=== PATIENT | male | born 1940 | race Caucasian/White ===

== ENCOUNTER 2020-06-10 06:10 | Observation (INO) | payer MEDICARE, SELFPAY ==
[2020-06-10] VITALS (12 sets, daily range): BP systolic 126–143; BP diastolic 50–87; PULSE 62–90; RESP 12–18; TEMP 36.4–37.4; O2SAT 96–100; BMI 24.6; BMI 24.2
--- NOTE | 2020-06-10 06:19 | ED.VIS.GEN ---
History of Present Illness Chief Complaint: Allergic Reaction Informant: Patient Onset: Yesterday Context: Gradual Onset Current Severity: Moderate Maximum Severity: Moderate Narrative: The patient is an 79-year-old male with medical history significant for hypertension the presents to the emergency department concern for allergic reaction. Patient states yesterday, he began to have some redness and itching on the palm of his left hand. He also noticed that on the lateral aspect of his left face. He states he has been using a diclofenac cream. He denies any other new exposures. He denies any trouble speaking or swallowing. He denies any fevers or chills. The patient is on an PALOMA inhibitor for high blood pressure and has been taking it for years. He has no history of angioedema. Prior similar symptoms: No Recent Illness/Hospitalization: No Past Medical History - Allergies and Home Meds Allergies/Adverse Reactions: Allergies Penicillins Allergy (Verified 06/10/20 06:18) Hives Primary Care Physician: Jose Rafael Kern MD [Primary Care Provider] - Prior records reviewed: Yes Past Medical History: - - Hypertension Surgical History: no surgical history Smoking Status: Never smoker - Family History Maternal Family History: Reports: - - He denies any chronic medical problems in the family. Review of Systems General: Denies: Chills, Fever, Sweats Eyes: Denies: Visual changes - bilaterally, Diplopia ENT: Denies: Rhinorrhea, Sore throat Cardiovascular: Denies: Chest pain, Palpitations Respiratory: Denies: Dyspnea, Cough, Dyspnea on exertion Gastrointestinal: Denies: Abdominal pain, Nausea, Vomiting, Diarrhea, Melena, Hematochezia Genitourinary: Denies: Dysuria, Hematuria, Frequency Musculoskeletal: Denies: Back pain, Extremity Pain Skin: Denies: Rash, Wounds Neurological: Denies: Headache, Weakness, Numbness Physical Exam Vital Signs/Narrative: Vital Signs Temp Pulse Resp BP Pulse Ox 06/10/20 06:15 135/59 H 06/10/20 06:12 98.6 F 77 16 100 Inital Vital Signs reviewed: Yes General: Well nourished, Well developed, No Acute Distress Head: Normocephalic, Atraumatic Eyes: Perrl, EOMI ENT: Moist mucous membranes, No rhinorrhea, - - Mild erythema and edema of the left lateral lower lip. Posterior oropharynx widely patent. No edema of the tongue. No trismus or stridor. Neck: Supple, Nontender Cardiovascular: Regular rate, Regular rhythm, No murmurs Respiratory: No distress, CTA bilaterally, Chest nontender Abdomen: Soft, Nontender, Nondistended, Normal bowel sounds Back: Nontender, Normal Inspection Extremities: Nontender, No edema Skin: Normal color, Rash - Erythema on the hand with some slight urticaria. Neurological: Alert, Oriented x3, Cranial nerves II-XII grossly intact, Normal Strength, Normal Sensation Psychological: Normal affect, Normal Mood Diagnostic/Tx/Re-eval - Medical Decision Making The patient presents with allergic reaction. There is some urticaria on the hand. However, he does have mild angioedema of the left lower lip. It does not involve the tongue or posterior oropharynx. This does seem to be consistent with contact as it does involve the hand, however the patient is also on lisinopril. The patient was treated with Benadryl, Pepcid, and Solu-Medrol. Screening labs were obtained were unremarkable. Again, this does seem more consistent with a contact allergic reaction, but with the component of slight angioedema I do feel the most prudent plan of care would be to have the patient hold his lisinopril. He is comfortable with this plan of care. I will keep him on a prednisone burst. He will be discharged home. Impression 1. Allergic reaction 2. Mild angioedema ED Disposition - Plan for ED Patient: Instructions: ED Angioedema Prescriptions: Prednisone [Deltasone] 40 mg PO DAILY #10 tab Prescription Printed Referrals: Jose Rafael Kern MD [Primary Care Provider] - Additional Instructions: Please do not take your lisinopril until you follow-up with Dr. Kern.
[2020-06-10] MEDS: DiphenhydrAMINE 50 MG/ML Syringe 25 MG IV (06:22)
[2020-06-10] MEDS: MethylPREDNISolone 125 MG/2 ML Vial IV (06:23)
[2020-06-10] MEDS: Famotidine 200 MG/20 ML MDV 20 MG in 0.9% Normal Saline (Pres. free 8 ML 300 MG IV ×2 (06:25→21:04)
[2020-06-10 06:33] LABS: Absolute Lymphocyte Count 1.84 X10^3/uL (0.83-4.51); Absolute Neutrophil Count 6.6 X10^3/uL (2.0-7.7); Eosinophil# 0.41 X10^3/uL; Eosinophils% 4.1 % (0-5); Hematocrit 33.3 % (40-54); Hemoglobin 10.7 g/dL (13.0-16.5); Lymphocyte # 1.84 X10^3/ul (4.0); Lymphocyte % 18.5 % (19-41); Mean Corp Hgb Conc 32.1 g/dL (32-36); Mean Corpuscular Hgb 29.7 pg (27.0-32.0); Mean Corpuscular Volume 92.5 fL (80-94); Mean Platelet Vol. 8.9 fl (6.2-12.0); Monocyte% 9.1 % (0-10); NRBC Flagged by Analyzer 0 % (0-5); Neutrophil # 6.63 X10^3/uL (2.7-7.7); Neutrophil % 66.8 % (47-70); Platelet Count 396 K/mm3 (150-450); RBC Distribution Width CV 13.1 % (11.6-14.6); RBC Distribution Width SD 44.2 fl (35.1-43.9); White Blood Count 9.9 K/mm3 (4.4-11.0)
[2020-06-10 06:56] LABS: Anion Gap 6 (5-15); BUN 25 mg/dL (7-18); BUN/Creat Ratio 22.3 RATIO (10-20); Calcium,Total 8.3 mg/dL (8.5-10.1); Chloride 103 mmol/L (98-107); Creatinine, Serum 1.12 mg/dL (0.70-1.30); EST Glomerular Filtration Rate 67 mL/min (>60); Est Glom Filt Rate - Afr Amer 81 mL/min (>60); Estimated Creatinine Clearance 51.73 ml/min; Glucose 101 mg/dL (74-106); Potassium 4.2 mmol/L (3.5-5.1); Sodium Level 137 mmol/L (136-145)
[2020-06-10] MEDS: LORazepam 2 MG/ML Syringe 0.5 MG IV (06:59)
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
--- NOTE | 2020-06-10 09:10 | PCM.HP.STD ---
History of Present Illness The patient is a 79 year old M [] Past Medical History Past Medical History (Chronic Problems): Chronic Problems Hypertension (Chronic) Allergies Penicillins Allergy (Verified 06/10/20 06:18) Hives Home Medications: Ambulatory Orders Medication Instructions Recorded Lisinopril [Zestril] 20 mg PO BID 08/27/16 Tamsulosin HCl [Flomax] 0.4 mg PO QHS 08/27/16 Amlodipine [Norvasc] 5 mg PO DAILY #30 tablet 08/31/16 Prednisone [Deltasone] 40 mg PO DAILY #10 tab 06/10/20 Surgical History: no surgical history Psychiatric History: No pertinent psych hx Smoking Status: Never smoker - *Family History Maternal History Items: - - He denies any chronic medical problems in the family. - Physical Exam Vitals/I&O's: Vital Signs Temp Pulse Resp BP Pulse Ox 98.6 F 69 18 132/87 H 99 06/10/20 06:12 06/10/20 08:11 06/10/20 08:11 06/10/20 08:11 06/10/20 08:11 Weight: 166 lb 14.239 oz Body Mass Index (BMI) 24.6 Intake and Output for Last 24 Hours 06/08/20 06/09/20 06/10/20 23:59 23:59 23:59 Intake Total Balance Laboratory Results 06/10/20 06:30: WBC 9.9, RBC 3.60 L, Hgb 10.7 L, Hct 33.3 L, MCV 92.5, MCH 29.7, MCHC 32.1, RDW Std Deviation 44.2 H, RDW Coeff of Jono 13.1, Plt Count 396, MPV 8.9, Immature Gran % (Auto) 0.500, Neut % (Auto) 66.8, Lymph % (Auto) 18.5 L, Ashley % (Auto) 9.1, Eos % (Auto) 4.1, Baso % (Auto) 1.0, Absolute Neuts (auto) 6.6, Absolute Lymphs (auto) 1.84, Nucleated RBC % 0 06/10/20 06:30: Sodium 137, Potassium 4.2, Chloride 103, Carbon Dioxide 28.0, Anion Gap 6, BUN 25 H, Creatinine 1.12, Estim Creat Clear Calc 51.73, Est GFR (MDRD) Af Amer 81, Est GFR (MDRD) Non-Af 67, BUN/Creatinine Ratio 22.3 H, Glucose 101, Calcium 8.3 L Assessment/Plan All Active Problems Cholecystitis (Acute) Gallstone pancreatitis (Acute)
[2020-06-10] MEDS: amLODIPine 5 MG Tablet PO (10:41)
[2020-06-10] MEDS: 0.9% Normal Saline 1,000 ML 100 ML IV (10:42)
[2020-06-10] MEDS: Enoxaparin 40 MG/0.4 ML Syringe SC (10:42)
[2020-06-10] MEDS: 0.9% Saline Lock 10 ML Syringe IV ×5 (10:50→23:53)
[2020-06-10] MEDS: DiphenhydrAMINE 50 MG/ML Syringe 12.5 MG IV ×3 (10:50→23:53)
[2020-06-10 11:00] LABS: Bedside Glucose 139 mg/dL (70-110)
--- NOTE | 2020-06-10 15:04 | CASEMGMT ---
Addendum entered by Rere Sanchez 06/10/20 15:25: This RN CM back to room. Pt inquiring about being inpt or OBS and this RN CM informed him that he is Obs at this time. Pt states that no one informed him of being observation but pt was provided with the MCR IP vs OBS booklet in the ED. Pt is not happy and asks this RN CM 'So you think I can just pay for this out of pocket.' Pt advised that he has a managed MCR which has MCR A/B and explained what A/B both cover at this time. Pt aware that he should not be paying for visit 'out of pocket' as his AnthMCR should cover but it's just paid differently than inpt. Pt still seems upset at this time but does not ask this RN CM any more questions. Danuta, PCU director, aware of all and states she will stop into to see pt. Pt is on room air at this time with slight swelling to upper lip. Pt is in no distress at this time. Lata KHAN CM Original Note: Per Luz, PCU charge, pt would like to speak with RN CM regarding OBS status at this time. This RN CM has attempt to see pt multiple times without success. Will attempt again later. Lata KHAN CM
[2020-06-10] MEDS: Tamsulosin HCl 0.4 MG Capsule PO (21:04)
[2020-06-11 03:00] VITALS: PULSE 61
[2020-06-11] MEDS: 0.9% Saline Lock 10 ML Syringe IV (05:49)
[2020-06-11] MEDS: DiphenhydrAMINE 50 MG/ML Syringe 12.5 MG IV (05:49)
[2020-06-11 05:52] VITALS: BP 123/53; PULSE 60; RESP 16; TEMP 37.5; O2SAT 97
[2020-06-11 07:00] VITALS: PULSE 66
[2020-06-11 07:22] LABS: AST(SGOT) 19 U/L (15-37); Alanine Aminotransfer ALT/SGPT 42 U/L (16-61); Albumin, Serum 2.7 g/dL (3.2-5.0); Alkaline Phosphatase 175 U/L (45-117); Bilirubin, Direct 0.13 mg/dL (0.00-0.30); Globulin 3.5 g/dL (2.2-4.2); Magnesium 2.2 mg/dL (1.6-2.6); Protein, Total 6.2 g/dL (6.4-8.2)
[2020-06-11 07:35] VITALS: O2SAT 93
[2020-06-11 09:30] VITALS: BP 119/53; PULSE 65; RESP 16; TEMP 36.8; O2SAT 95
[2020-06-11] MEDS: amLODIPine 5 MG Tablet PO (09:32)
[2020-06-11] MEDS: Enoxaparin 40 MG/0.4 ML Syringe SC (09:32)
[2020-06-11] MEDS: Famotidine 200 MG/20 ML MDV 20 MG in 0.9% Normal Saline (Pres. free 8 ML 300 MG IV (09:43)
--- NOTE | 2020-06-11 10:58 | DCINST_ITS ---
- Discharge Diagnoses Current Active Problems: Current Active and Chronic Problems Allergic reaction (Acute) Angioedema of upper lip (Acute) You will use the following diet at home:: Cardiac Your food should be the consistency of: Regular Discharge Activity: May Not Drive Weight Bearing Status: Weight bearing as tolerated Call your doctor if you observe: Fever of 101 or Higher, Numbness or Tingling, Change in Color, Inability to urinate, Inability to have a bowel movement, Shortness of breath, Dizziness, Fainting spells, Swelling in the ankles, Chest pain, Prolonged hiccoughing, Increased palpitations (irregular heartbeat), Calf discomfort, Uncontrolled pain Instructions: ED Angioedema Pending Tests on Discharge: Follow-up orthopedic surgeon, [facility] [address] on 06/13/2020 Allergies/Adverse Reactions: Allergies Penicillins Allergy (Intermediate, Verified 06/10/20 09:49) Hives Medications to take at Discharge Tamsulosin HCl [Flomax] 0.4 mg PO QHS 08/27/16 Amlodipine [Norvasc] 5 mg PO DAILY 06/10/20 Diphenhydramine HCl [Benadryl Allergy] 12.5 mg PO Q6H #30 tab 06/11/20 Famotidine [Pepcid] 20 mg PO BID #14 tab 06/11/20 Lisinopril [Zestril] 20 mg PO BID #0 06/11/20 Prednisone 10 mg PO DAILY #30 tab 06/11/20 The following prescriptions were given: Diphenhydramine HCl [Benadryl Allergy] 12.5 mg PO Q6H #30 tab Famotidine [Pepcid] 20 mg PO BID #14 tab Prednisone 10 mg PO DAILY #30 tab Primary Care Physician: Jose Rafael Kern MD [Primary Care Provider] - Please follow up with your Primary Care Physician in: IN 2 WEEKS Test Results: Test results from this visit will be discussed in further detail at your follow- up appointment, if applicable.
--- NOTE | 2020-06-11 11:46 | CASEMGMT ---
This ERIN CM to room with YEE form at this time, explanation done-pt voices understanding, and signed YEE form at this time. Pt states that he did call his insurance company this am to go over coverage for outpt. Original to chart and copy to pt at this time. Pt voices no further questions/concerns/needs at this time. SStaten ERIN WILCOX
--- NOTE | 2020-06-11 13:00 | DS.PCM_ITS ---
Discharge Date and Diagnosis Date of Admission: 06/10/20 Date of Discharge: 06/11/20 - Primary Discharge Diagnosis Acute Problems: Active Problems Allergic reaction (Acute) Angioedema of upper lip (Acute) - Secondary Discharge Diagnosis Chronic Problems: Chronic Problems Gallstone pancreatitis (Chronic) Hypertension (Chronic) Hospital Course and Treatment Operations: cholecystecomy Summary of Care Provided: This 79-year ago gentleman with history of hypertension came to ED with left- sided facial and upper lip, left hand and right knee swelling, and itching consistent with allergic reaction/angioedema 1. Angioedema of upper lip and left-sided buccal mucosa/cheek: Patient is being admitted on PCU for airway monitoring. Patient does not have dysarthria, dysph agia or aspiration. Patient is having diet. Patient was treated with IV Solu- Medrol, Benadryl and Pepcid and discharged on the oral formulation of same medications. Patient was advised to hold lisinopril until he sees PCP. Patient also had IV fluid. 2. Hypertension: Continue amlodipine. 3. BPH: Continue Flomax 4. Diffuse degenerative joint disease, recent right total hip replacement, ri ght forearm/hand prosthesis: PT and OT ordered. DVT prophylaxis: Lovenox 40 mg subcu daily. Advanced directive/living will: DNR CC arrest. Discharge medication reconciliation done. Discharge follow-up instructions completed. Discharge process discussed with the patient and all questions were answered to patient's satisfaction. Total time spent, exact 35 minutes on discharge meds reconciliation, examination, coordination of care with nurses and ancillary staff, review of imaging and blood test and discussion with the patient on follow-up instructions Objective: Seen and examined. Heart rate and blood pressure are controlled. Left-sided cheek swelling has improved. No itching. General: Alert, Oriented x3, Cooperative HEENT: Atraumatic, PERRLA, EOMI, Normocephalic Oral: No Gingival or Mucosal Lesions/ Ulcerations, - - Swelling of left sided buccal mucosa and upper lip. Neck: Supple, No JVD, Negative Carotid Bruits Lungs: Clear to auscultation, Normal air movement, No rhonchi, No wheeze, No rales Cardiovascular: Regular rate, Regular Rhythm, Normal S1, Normal S2, No murmurs Abdomen: Bowel Sounds Present, Soft, Non Tender, Non-Distended Extremities: No edema, Capillary Refill Less than 3 Seconds Skin: No rashes, No breakdown Musculoskeletal: No Tenderness to Palpation of Joints or Extremities, Arthritic Changes, Old healed right TKR. Recent right hip replacement. Steri-Strip dressing is dry. Right forearm and hand prosthesis Neurological: Cranial nerves II-XII grossly intact, Deep Tendon Reflexes 2+/4 and Symmetrical, Neuro grossly intact Psych/Mental Status: Normal Affect, Appropriate - Physical Exam Vitals/I&O's: Vital Signs Temp Pulse Resp BP Pulse Ox 98.3 F 65 16 119/53 L 95 06/11/20 09:30 06/11/20 09:30 06/11/20 09:30 06/11/20 09:30 06/11/20 09:30 Oxygen Delivery Method Room Air Weight: 164 lb 0.383 oz Body Mass Index (BMI) 24.2 Intake and Output for Last 24 Hours 06/09/20 06/10/20 06/11/20 23:59 23:59 23:59 Intake Total 1620 / 1620 Balance 1620 / 1620 Laboratory Results 06/11/20 06:30: Magnesium 2.2, Total Bilirubin 0.30, Direct Bilirubin 0.13, AST 19, ALT 42, Alkaline Phosphatase 175 H, Total Protein 6.2 L, Albumin 2.7 L, Globulin 3.5 Current Medications Acetaminophen (Tylenol) 650 mg PO Q6H PRN PRN PRN Reason: Pain Score 1-10/Temp > 100.7 F Albuterol Sulfate (Ventolin Aerosols) 2.5 mg INHALATION Q2H PRN PRN PRN Reason: SOB/Wheezing Amlodipine Besylate (Norvasc) 5 mg PO DAILY [facility] Last Admin: 06/11/20 09:32 Dose: 5 mg Documented by: Bisacodyl (Dulcolax) 5 mg PO DAILY PRN PRN PRN Reason: severe Constipation Dextrose (D50w Syringe) 0 gm IV X1 PRN; Protocol PRN Reason: Hypoglycemia Diphenhydramine HCl (Benadryl) 12.5 mg IV Q6 [facility] Last Admin: 06/11/20 05:49 Dose: 12.5 mg Documented by: Enoxaparin Sodium (Lovenox) 40 mg SC DAILY [facility] Last Admin: 06/11/20 09:32 Dose: 40 mg Documented by: Glucagon () 1 mg IM .X1 PRN PRN Reason: Hypoglycemia Famotidine 20 mg/ Sodium (Chloride) 10 mls @ 300 mls/hr IV Q12 [facility] Last Infusion: 06/11/20 09:45 Dose: Infused Documented by: Methylprednisolone (Solu-Medrol) 40 mg IV Q8 [facility] Last Admin: 06/11/20 05:49 Dose: 40 mg Documented by: Morphine Sulfate () 2 mg IV Q3H PRN PRN PRN Reason: Pain Score 6-10/10 Nitroglycerin (Nitrostat) 0.4 mg SUBLINGUAL Q5M PRN PRN Reason: CARDIAC/CHEST PAIN Ondansetron HCl (Zofran) 4 mg IV Q8H PRN PRN PRN Reason: NAUSEA/VOMITING Oxycodone HCl (Oxyir) 5 mg PO Q4H PRN PRN PRN Reason: Pain Score 4-5/10 Senna/Docusate Sodium (Senokot-S, Leticia-Colace) 2 tablet PO BID PRN PRN PRN Reason: Constipation Sodium Chloride () 10 - 40 ml IV UD PRN PRN Reason: SALINE FLUSH Last Admin: 06/11/20 05:49 Dose: 10 ml Documented by: Tamsulosin HCl (Flomax) 0.4 mg PO QHS [facility] Last Admin: 06/10/20 21:04 Dose: 0.4 mg Documented by: Discharge Activity: May Not Drive Weight Bearing Status: Weight bearing as tolerated Call your doctor if you observe: Fever of 101 or Higher, Numbness or Tingling, Change in Color, Inability to urinate, Inability to have a bowel movement, Shortness of breath, Dizziness, Fainting spells, Swelling in the ankles, Chest pain, Prolonged hiccoughing, Increased palpitations (irregular heartbeat), Calf discomfort, Uncontrolled pain Home Medications: Medications to take at Discharge Tamsulosin HCl [Flomax] 0.4 mg PO QHS 08/27/16 Amlodipine [Norvasc] 5 mg PO DAILY 06/10/20 Diphenhydramine HCl [Benadryl Allergy] 12.5 mg PO Q6H #30 tab 06/11/20 Famotidine [Pepcid] 20 mg PO BID #14 tab 06/11/20 Lisinopril [Zestril] 20 mg PO BID #0 06/11/20 Prednisone 10 mg PO DAILY #30 tab 06/11/20 Following Prescrptions Were Given to Patient: Diphenhydramine HCl [Benadryl Allergy] 12.5 mg PO Q6H #30 tab Transmission Status: Received by [id number] Famotidine [Pepcid] 20 mg PO BID #14 tab Transmission Status: Received by [id number] Prednisone 10 mg PO DAILY #30 tab Transmission Status: Received by [id number] Primary Care Physician: Jose Rafael Kern MD [Primary Care Provider] - Please follow up with your Primary Care Physician in: IN 2 WEEKS Patient Instructions: ED Angioedema Medical Necessity - Tobacco Use Smoking Status: Never smoker Meaningful Use Info Meaningful Use Diagnoses (Choose all that apply): None applicable OBSV E&M: 52097 Observation care discharge
--- NOTE | 2020-06-11 13:13 | NURSING ---
1240-Pt up to nurses desk very aggitated about being discharged home. pt stated that he was released and he wants to get out of here. At this time there is no order for discharge. Advised pt that this RN would contact Dr Mayorga to determine if he was planning on send pt home today. 1241-Core text sent to Dr Mayorga, waiting for call. 1242-OIL FIELD TECHNICIAN came to this RN and stated pt is wanting to leave AMA and is not waiting for the Dr. This RN into speak with pt and reassured that I contacted the MD and am just waiting for a call back. Pt still very upset and stated well if I leave your just not going to get paid. 1259-Dr Mayorga placed orders to d/c. Pt notified and discharge teaching was reviewed.
== END 2020-06-11 12:59 | disposition home or self-care (01) ==
LOC: ED 06:57 → PCU 09:27
PROVIDERS: Admitting Provider Internal Medicine; Emergency Provider Emergency Medicine; PCP Internal Medicine; Visit Provider Internal Medicine
DX: T78.3XXA Angioneurotic edema, initial encounter (principal); I10 Essential (primary) hypertension; Z79.899 Other long term (current) drug therapy; N40.0 Benign prostatic hyperplasia without lower urinary tract symptoms; M19.90 Unspecified osteoarthritis, unspecified site; I65.22 Occlusion and stenosis of left carotid artery; M25.461 Effusion, right knee
CPT/HCPCS: 36415; 80048; 80076; 82962; 83735; 85025; 96361; 96372; 96374; 96375; 96376; 99218; 99251; 99283; J7030; A4216; G0378; G0463; J3490

== ENCOUNTER 2020-12-26 13:56 | Outpatient (RCR) | payer MEDICARE, SELFPAY ==
[2020-06-10 09:32] VITALS: BMI 24.2
== END 2020-12-26 23:59 ==
LOC: IMMUN 13:56
PROVIDERS: PCP Internal Medicine; Visit Provider Family Medicine
DX: Z23 Encounter for immunization (principal)
CPT/HCPCS: 0011A; 0012A; 91301